=== PATIENT | male | born 1965 | race Caucasian/White ===

== ENCOUNTER 2018-12-08 06:46 | Day surgery (SDC) | payer OTHER ==
[2018-12-06 09:44] VITALS: BMI 36.6
[~2018-12-08 06:46] MED LIST: LACTATED RINGERS 1,000 ML IV SCH; LIDOCAINE 1% 20 ML VIAL (10MG/ML) FOR IV START INTRADERMA PRN
[2018-12-08 07:15] VITALS: TEMP 97.2
[2018-12-08] MEDS ORDERED: LIDOCAINE 1% INJ 10MG/ML (20 ML MDV) ONE (07:27)
[2018-12-08] MEDS ORDERED: PROPOFOL 10 MG/ML 20 ML VIAL IV ONE ×2 (07:27→08:25)
--- NOTE | 2018-12-08 07:54 | P.OP ---
Date of Procedure: 12/08/18 Preoperative Diagnosis: Screening, history of colon polyps Postoperative Diagnosis: Ascending colon polyp Sigmoid colon inflammation Internal hemorrhoids Procedure(s) Performed: Colonoscopy with snare polypectomy and biopsy Surgeon: Jared Cristina Pathology: other (Ascending colon polyp, sigmoid colon biopsy) Disposition: same day Indications for Procedure: 53-year-old male presents for a screening colonoscopy. His last, he was 1 year ago and was found to have multiple polyps at that time. He was explained the risks, benefits and alternatives to the procedure. He did provide consent prior to attending the endoscopy suite. Operative Findings: Ascending colon polyp Sigmoid colon inflammation Internal hemorrhoids Description of Procedure: The patient was brought into the endoscopy suite and placed in left lateral decubitus position. Adequate sedation was achieved using conscious sedation. A digital rectal exam was performed and mild internal hemorrhoids were palpated. An endoscope was then placed in the rectum and advanced to the cecum as identified by landmarks, including the appendiceal orifice and the ileocecal valve. The prep was good. The colonoscope was then slowly withdrawn, examining for any mucosal enterotomies. The cecum, ascending, transverse, descending and sigmoid colon were visualized adequately. There was a polyp noted in the ascending colon. This was flat and able to be removed by snare polypectomy. Hemostasis was maintained. There were no large neoplastic lesions noted throughout the colon. There were no obvious diverticula throughout the colon. There was notable inflammation in the sigmoid colon. Multiple biopsies were taken. Retroflexion was performed in the rectum and internal hemorrhoids were palpated. Excess air was removed. The clot scope was withdrawn and procedure terminated. The patient was then transferred to post anesthesia care unit in stable condition. Next colonoscopy should be performed in 5 years.
[2018-12-08 08:08] VITALS: BP 133/81; PULSE 54; RESP 16
[2018-12-08] MEDS ORDERED: GLUCAGON 1 MG/ML VIAL ONE (08:25)
== END 2018-12-08 08:15 | disposition home or self-care (01) ==
LOC: ORWHC2ENDO 06:46
PROVIDERS: ATTEND Surgery
DX: Z12.11 Encounter for screening for malignant neoplasm of colon (principal); Z86.010 Personal history of colon polyps; D12.2 Benign neoplasm of ascending colon; K64.8 Other hemorrhoids; K63.5 Polyp of colon; K21.9 Gastro-esophageal reflux disease without esophagitis; F17.200 Nicotine dependence, unspecified, uncomplicated; R55 Syncope and collapse; Z97.2 Presence of dental prosthetic device (complete) (partial)
CPT/HCPCS: 45385; 45380; 88305; J1610; J2001; J2704